=== PATIENT | female | born 1955 | race Caucasian/White ===

== ENCOUNTER 2020-03-03 17:08 | Emergency (ER) | payer OTHER ==
[~2020-03-03] VITALS: Ht 165.1 cm; Wt 68.2 kg
[~2020-03-03 17:08] MED LIST: CELEXA 20MG20 MG/TAB PO; ENTOCORT EC3 MG PO; HUMIRA40 MG/0.1 SC; LORTAB 5/500 501 TAB PO; METHOTREXA50 MG/2 ML; MULTIPLE VITAMI1 CAP; OMEGA 31000 MG PO; PEPCID 20MG TAB20 MG PO; PRILOSEC 20MG20 MG PO; SYNTHROID0.05 MG/TA PO; TOPAMAX50 MG PO; VALTREX 50500 MG/TAB PO; VIT B COMPLEX; VIT D; WELCHOL 625MG625 MG PO; ZOFRAN 4MG T4 MG/TAB PO; ZYRTEC 10MG10 MG PO
[2020-03-03 17:29] VITALS: TEMP 99.1
[2020-03-03] MEDS ORDERED: PRILOSEC 20MG20 MG PO (17:46)
[2020-03-03] MEDS ORDERED: ZOVIRAX400 MG PO (17:47)
[2020-03-03] MEDS ORDERED: MACROBID 1100 MG/CAP PO (17:48)
[2020-03-03] MEDS ORDERED: PROBIOTIC FORMU1 CAP PO (17:48)
[2020-03-03] MEDS ORDERED: ZETIA 10MG TAB10 MG PO (17:48)
[2020-03-03] MEDS ORDERED: TYLENOL 8 HR PO (17:49)
[2020-03-03] MEDS ORDERED: ULTRAM 50MG TAB50 MG PO (17:50)
[2020-03-03 18:08] LABS: BASO # 0.1 (0.0-0.2); BASO % 0.4 % (0.0-2.0); EOS # 0.5 (0.0-0.7); GRAN % 66.5 % (42.2-75.2); HEMOGLOBIN 13.2 g/dl (12.5-16.0); LYMPH # 2.6 (1.2-3.4); LYMPH % 21.6 % (20.0-51.0); MEAN CELL VOLUME 96 fl (80.0-100.0); MEAN CORPUSCULAR HEMOGLOBIN 31 pg (27.0-31.0); MEAN CORPUSCULAR HGB CONC 32 g/dl (33.0-37.0); MEAN PLATELET VOLUME 9.7 fl (7.4-10.4); MONO # 0.9 (0.1-0.6); MONO % 7.3 % (1.7-9.3); PLATELET COUNT 337 K/mm3 (130-400); RED BLOOD COUNT 4.29 M/mm3 (4.10-5.30); REDCELL DISTRIBUTION WIDTH-CV 12.8 % (11.5-14.5)
[2020-03-03 18:20] LABS: ALBUMIN 4.3 gm/dL (3.5-5.0); BILIRUBIN,TOTAL 0.2 mg/dL (0.0-1.0); CALCIUM 9.3 mg/dL (8.4-10.2); CREATININE, serum 0.94 (0.52-1.25); POTASSIUM 4.4 mmol/L (3.4-5.0); TOTAL PROTEIN 8.4 gm/dL (6.4-8.2)
[2020-03-03 19:52] LABS: C-REACTIVE PROTEIN 4.7 mg/dL (0.0-0.9)
[2020-03-03] MEDS ORDERED: PREDNISONE20 MG PO (20:00)
[2020-03-03 20:13] VITALS: BP 121/76; PULSE 78
== END 2020-03-03 20:29 | disposition home or self-care (01) ==
LOC: COL.ER 17:08
PROVIDERS: Emergency Medicine
DX: J84.9 Interstitial pulmonary disease, unspecified (principal); E78.5 Hyperlipidemia, unspecified; F32.9 Major depressive disorder, single episode, unspecified; F41.9 Anxiety disorder, unspecified; Z90.49 Acquired absence of other specified parts of digestive tract; Z90.710 Acquired absence of both cervix and uterus; Z88.1 Allergy status to other antibiotic agents; Z87.891 Personal history of nicotine dependence; Z20.828 Contact with and (suspected) exposure to other viral communicable diseases; Z88.0 Allergy status to penicillin; Z88.2 Allergy status to sulfonamides
CPT/HCPCS: J7512; Q9967

== ENCOUNTER → 2020-07-09 | Outpatient (CLI) | payer OTHER ==
[~2020-07-09] MED LIST changes: +MACROBID 1100 MG/CAP PO; +PREDNISONE20 MG PO; +PROBIOTIC FORMU1 CAP PO; +TYLENOL 8 HR PO; +ULTRAM 50MG TAB50 MG PO; +ZETIA 10MG TAB10 MG PO; +ZOVIRAX400 MG PO
== END ==
LOC: MC.RAD 09:42
DX: N63.41 Unspecified lump in right breast, subareolar (principal)

== ENCOUNTER → 2021-11-18 | Outpatient (CLI) | payer OTHER | LOC: COL.RAD 06:58 | DX: K44.9 Diaphragmatic hernia without obstruction or gangrene (principal); K76.0 Fatty (change of) liver, not elsewhere classified; R91.8 Other nonspecific abnormal finding of lung field; Z90.49 Acquired absence of other specified parts of digestive tract | CPT/HCPCS: Q9967 ==